=== PATIENT | female | born 1990 | race Hispanic/Latino ===

== ENCOUNTER 2016-05-03 18:31 | Emergency (ER) | payer SELFPAY ==
[2016-05-03] MEDS ORDERED: Ondansetron ODT 4 MG TAB ONE (18:55)
[2016-05-03 19:07] LABS: Bilirubin Negative (Negative); Blood, Urine Negative (Negative); Glucose, Urine (Dipstick) Negative (Negative); Ketone, Urine Negative (Negative); Nitrite Negative (Negative); Protein, Urine (Dipstick) Negative (Neg-Trace)
[2016-05-03 19:15] LABS: Bacteria/HPF Rare-Few HPF (None Seen); RBC/HPF 0-3 HPF (0-3); WBC/HPF 0-3 HPF (0-3)
--- NOTE | 2016-05-03 19:53 | ERRECORD ---
[facility] EMERGENCY RECORD HPI SORE THROAT (18:50 WMEI) CHIEF COMPLAINT: Patient presents for evaluation of sore throat, Patient presents for evaluation of FATIGUE MALAISE. HISTORIAN: History provided by patient. LOCATION: Symptoms are generalized. TIME COURSE: Gradual onset of symptoms, 2, days priror to arrival. ASSOCIATED WITH: No associated fever, No associated chills, No associated cough. RELIEVED BY: Patient's condition relieved by nothing. ROS (18:51 WMEI) CONSTITUTIONAL: Historian denies chills, reports fatigue, denies fever, reports malaise. EYES: Historian denies eye pain, denies eye discharge. ENT: Historian denies otalgia, denies rhinorrhea, denies sinus pain, reports sore throat. CARDIOVASCULAR: Historian denies chest pain, no radiation. RESPIRATORY: Historian denies cough, denies shortness of breath. GI: Historian reports abdominal pain, reports diarrhea, reports nausea, reports vomiting. GENITOURINARY FEMALE: Historian reports frequency. MUSCULOSKELETAL: Historian denies injury, denies joint stiffness, denies joint swelling. SKIN: Historian denies skin changes, denies skin lesions. ALLERGIC/IMMUNOLOGIC: Historian denies eczema, denies food allergies. PSYCHIATRIC: Historian denies alcohol abuse, denies anxiety. PAST MEDICAL HISTORY (18:37 KMOR) MEDICAL HISTORY: No past medical history, Flu vaccine not up to date, Tetanus immunization up to date. FEMALE SURGICAL HISTORY: Patient has no surgical history. PSYCHIATRIC HISTORY: No previous psychiatric history. SOCIAL HISTORY: Patient denies alcohol use, Patient denies drug use, Patient currently uses tobacco, smokes cigarettes, daily, Patient smokes 1/2 packs per day. KNOWN ALLERGIES No Known Drug Allergies CURRENT MEDICATIONS (18:52 KMOR) None VITAL SIGNS VITAL SIGNS: BP: 140/90, Resp: 18, Time: 05/03/2016 18:33. (18:33 KMOR) Pulse: 70, Temp: 98.3 (Oral), Pain: 5, O2 sat: 98 on Room Air, Time: 05/03/2016 18:36. (18:36 KMOR) PHYSICAL EXAM (18:53 WMEI) &a-1R&a+25V*p+0X*m8780F*c202B*c15G*c2P*p-0X&a-25V&a+1R Name: Sandra Paris : 1990 F26 MedRec: [id number] AcctN: [id number] Prepared: [facility] May 03, 2016 22:58 by Interface Page 1 of 3 pMD [facility] EMERGENCY RECORD CONSTITUTIONAL: Vital Signs Reviewed, Patient afebrile, Patient appears non toxic, Patient alert and oriented to person, place and time. HEAD: Head exam included findings of head atraumatic, normocephalic. EYES: Conjunctiva normal, Sclera normal. ENT: Ear exam normal, Nose exam normal, Pharynx exam normal, Tonsil exam normal. NECK: Neck exam included findings of normal range of motion, Trachea midline. RESPIRATORY CHEST: Breath sounds clear, Chest exam included findings of chest movement symmetrical. CARDIOVASCULAR: Cardiovascular exam included findings of heart rate regular rate and rhythm, Heart sounds normal. ABDOMEN FEMALE: Abdominal exam included findings of abdomen nontender, Liver normal, Spleen normal, no distension. UPPER EXTREMITY: Upper extremity exam included findings of inspection normal, Range of motion normal, Motor strength normal. LOWER EXTREMITY: Lower extremity exam included findings of inspection normal, Range of motion normal, Motor strength normal. NEURO: Meenu coma scale 15, Neuro exam findings include patient oriented to person, place and time, Speech normal, Gait normal. SKIN: Skin exam included findings of skin warm, dry, and normal in color. LYMPHATIC: Lymphatic exam normal. PSYCHIATRIC: Psychiatric exam included findings of patient oriented to person place and time, Normal affect, Judgment normal, Insight normal. MEDICATION ADMINISTRATION SUMMARY Drug Name: *ondansetron, Dose Ordered: 4 mg, Route: Sublingual, Status: Given, Time: 18:57 05/03/2016, *Additional information available in notes, Detailed record available in Medication Service section. PROBLEM LIST No recorded problems DIAGNOSIS (19:34 WMEI) FINAL: PRIMARY: Acute URI. PRESCRIPTION No recorded prescriptions DISPOSITION PATIENT: Disposition Type: Discharge, Disposition: *Discharge Home. (19:34 WMEI) Patient left the department. (19:40 PGRI) [place]: &a-1R&a+25V*p+0X*h7835A*c202B*c15G*c2P*p-0X&a-25V&a+1R Name: Sandra Paris DOB: 1990 F26 MedRec: [id number] AcctNum: [id number] Prepared: Jailene May 03, 2016 22:58 by Interface Page 2 of 3 pMD [facility] EMERGENCY RECORD KMOR=BHAVIK Kelly, Donna PGRI=BHAVIK Newberry, Shantal WMEI=DO Julissa, Dez &a-1R&a+25V*p+0X*p3986B*c202B*c15G*c2P*p-0X&a-25V&a+1R Name: Sandra Paris : 1990 F26 MedRec: [id number] AcctNum: [id number] Prepared: Jailene May 03, 2016 22:58 by Interface Page 3 of 3 pMD MTDD
--- NOTE | 2016-05-03 19:54 | PICIS ---
[facility] EMERGENCY RECORD TRIAGE (SatMay 03, 2016 18:35 KMOR) TRIAGE NOTES: "feels numb all over", fatigue, nausea, vomiting, headache for past several days. (SatMay 03, 2016 18:35 KMOR) PATIENT: NAME: Sandra Paris, AGE: 26, GENDER: female, : Sat1990, TIME OF GREET: SatMay 03, 2016 18:31, PREFERRED LANGUAGE: Macedonian, ETHNICITY: Not or , ECODE BILLING MAP: [facility] ER, KG WEIGHT: 81.65, , , PERSON ID: [id number], PCP: NONE. (SatMay 03, 2016 18:35 KMOR) Zip Code: [address], PHONE: , PAYMENT: [employer] Self Pay. (19:02) COMPLAINT: Not feeling well. (SatMay 03, 2016 18:35 KMOR) ADMISSION: URGENCY: 3 Urgent, ADMISSION SOURCE: Home, TRANSPORT: CAR, BED: ER -03. (SatMay 03, 2016 18:35 KMOR) ASSESSMENT: Assessment: A&OX4. RR EVEN AND UNLABORED. (18:37 KMOR) PAIN: Patient complains of pain described as, aching, Location HEADACHE. (18:37 KMOR) SIRS SCORING: Heart Rate 55-109 (0), Temp range 96.8-101.1 (0), respiratory rate 12-24 (0), Mental Status altered: no (0), Infection or Suspected Infection: No. (18:37 KMOR) TRIAGE SCREENING: Patient denies suicidal ideation, Patient denies presence of domestic violence. (18:37 KMOR) LMP: LMP: Not Applicable. (18:37 KMOR) PROVIDERS: TRIAGE NURSE: Donna Kelly RN. (Jailene May 03, 2016 18:35 KMOR) VITAL SIGNS: BP 140/90, Resp 18, Time 05/03/2016 18:33. (18:33 KMOR) Pulse 70, Temp 98.3, (Oral), Pain 5, O2 Sat 98, on Room Air, Time 05/03/2016 18:36. (18:36 KMOR) KNOWN ALLERGIES No Known Drug Allergies CURRENT MEDICATIONS (18:52 KMOR) None VITAL SIGNS VITAL SIGNS: BP: 140/90, Resp: 18, Time: 05/03/2016 18:33. (18:33 KMOR) Pulse: 70, Temp: 98.3 (Oral), Pain: 5, O2 sat: 98 on Room Air, Time: 05/03/2016 18:36. (18:36 KMOR) NURSING ASSESSMENT: ENT (18:52 KMOR) CONSTITUTIONAL: Patient arrives ambulatory, Gait steady, History obtained from patient, Patient appears comfortable, Patient cooperative, Patient alert, Oriented to person, place and time, Skin warm, Skin dry, Skin normal in color, Mucous membranes pink, Mucous membranes moist, Patient is well-groomed, Patient complains of Not feeling well, Patient reports not feeling well for past 2 days, &a-1R&a+25V*p+0X*u8173O*c202B*c15G*c2P*p-0X&a-25V&a+1R Name: Sandra Paris : 1990 F26 MedRec: [id number] AcctNum: [id number] Prepared: [facility] May 03, 2016 23:04 by Interface Page 1 of 7 pMD [facility] EMERGENCY RECORD reports numbness to body, headache, chills, nausea, fatigue and vomiting. PAIN: headache, on a scale 0-10 patient rates pain as 5. ENT: Ear assessment findings include ear normal to inspection, Nasal assessment findings include nose normal to inspection, Sinuses normal, Nasal mucosa normal, Mouth and throat assessment findings include mouth inspection normal, Uvula normal, Tonsils normal, Mucous membranes pink, and moist, Able to swallow, Speech normal, Associated with headache, diffuse. RESPIRATORY/CHEST: Breath sounds clear, Respiratory assessment findings include respiratory effort easy, Respirations regular, Conversing normally, Neck and chest exam findings include trachea midline, Chest expansion equal, Chest movement symmetrical, no signs of distress, no retractions noted, no associated cough noted. NOTES: Patient tolerated procedure well. NURSING PROCEDURE: DISCHARGE NOTE (19:39 PGRI) DISCHARGE: Patient discharged to home, ambulating without assistance, friend driving, accompanied by friend, Summary of Care printed/ provided, Patient requested and was provided an electronic copy of Discharge Instructions, Transition record given to patient, Discharge instructions given to patient, Patient treated and evaluated by physician. BELONGINGS: Belongings and valuables with patient upon arrival to the Emergency Department include:, Belongings and valuables with patient at time of discharge include:, Belongings remain with patient, Valuables remain with patient. SAFETY: Side rails up, Cart/Stretcher in lowest position, Family at bedside, Call light within reach, Hospital ID band on. NURSING PROCEDURE: ENT (18:54 KMOR) PATIENT IDENTIFIER: Patient actively involved in identification process, Patient's identity verified by patient stating name, Patient's identity verified by patient stating date. ENT: Nasal swab collected, labeled in the presence of the patient and sent to lab for testing of, influenza A, influenza B, collected by BHAVIK Thompsno, Throat swab collected, labeled in the presence of the patient and sent to the lab for testing of, rapid strep, collected by BHAVIK Thompson. NOTES: Patient tolerated procedure well. NURSING PROCEDURE: NURSE NOTES (18:54 KMOR) NURSES NOTES: Notes: Patient laughing with friend at bedside. ORDER DETAILS Order Name: Influenza A&B Ag Screen, Status: Active, Time: 18:50 05/03/2016, User: ALYSSA, &a-1R&a+25V*p+0X*y0224A*c202B*c15G*c2P*p-0X&a-25V&a+1R Name: Sandra Paris : 1990 F26 MedRec: [id number] AcctNum: [id number] Prepared: SatMay 03, 2016 23:04 by Interface Page 2 of 7 pMD [facility] EMERGENCY RECORD - Ordered for: DO Costa William, - Entered by: DO Costa William - [facility] May 03, 2016 18:50, - Quantity: 1, Order Name: Test, Urine (BHCG), Status: Active, Time: 18:59 05/03/2016, User: WOLF, - Ordered for: DO Costa William, - Entered by: BHAVIK Kelly, Donna - [facility] May 03, 2016 18:59, - Quantity: 1, Order Name: Strep Group A Screen, Status: Active, Time: 18:50 05/03/2016, User: WMEI, - Ordered for: DO Costa William, - Entered by: DO Costa William - [facility] May 03, 2016 18:50, - Quantity: 1, Order Name: Urinalysis w/ Rflx Microscopic, Status: Active, Time: 18:53 05/03/2016, User: [facility], - Ordered for: DO Costa William, - Entered by: DO Costa William - [facility] May 03, 2016 18:53, - Quantity: 1. MEDICATION ADMINISTRATION SUMMARY Drug Name: *ondansetron, Dose Ordered: 4 mg, Route: Sublingual, Status: Given, Time: 18:57 05/03/2016, *Additional information available in notes, Detailed record available in Medication Service section. MEDICATION SERVICE (18:57 [facility]) ondansetron: Order: ondansetron - Dose: 4 mg : Sublingual Notes: Generic ODT Ordered by: Dez Costa DO Entered by: Dez Costa DO [facility] May 03, 2016 18:53 , Acknowledged by: Donna Kelly RN [facility] May 03, 2016 18:54 Documented as given by: Donna Kelly RN [facility] May 03, 2016 18:57 Patient, Medication, Dose, Route and Time verified prior to administration. Amount given: 4mg, Site: Medication administered S.L., Correct patient, time, route, dose and medication confirmed prior to administration, Patient advised of actions and side-effects prior to administration, Allergies confirmed and medications reviewed prior to administration, Patient in position of comfort, Side rails up, Cart in lowest position, Family at bedside. HPI SORE THROAT (18:50 [facility]) CHIEF COMPLAINT: Patient presents for evaluation of sore throat, Patient presents for evaluation of FATIGUE MALAISE. HISTORIAN: History provided by patient. LOCATION: Symptoms are generalized. TIME COURSE: Gradual onset of symptoms, 2, days priror to arrival. ASSOCIATED WITH: No associated fever, No &a-1R&a+25V*p+0X*g7118T*c202B*c15G*c2P*p-0X&a-25V&a+1R Name: Sandra Paris : 1990 F26 MedRec: [id number] AcctNum: [id number] Prepared: SatMay 03, 2016 23:04 by Interface Page 3 of 7 pMD [facility] EMERGENCY RECORD associated chills, No associated cough. RELIEVED BY: Patient's condition relieved by nothing. ROS (18:51 WMEI) CONSTITUTIONAL: Historian denies chills, reports fatigue, denies fever, reports malaise. EYES: Historian denies eye pain, denies eye discharge. ENT: Historian denies otalgia, denies rhinorrhea, denies sinus pain, reports sore throat. CARDIOVASCULAR: Historian denies chest pain, no radiation. RESPIRATORY: Historian denies cough, denies shortness of breath. GI: Historian reports abdominal pain, reports diarrhea, reports nausea, reports vomiting. GENITOURINARY FEMALE: Historian reports frequency. MUSCULOSKELETAL: Historian denies injury, denies joint stiffness, denies joint swelling. SKIN: Historian denies skin changes, denies skin lesions. ALLERGIC/IMMUNOLOGIC: Historian denies eczema, denies food allergies. PSYCHIATRIC: Historian denies alcohol abuse, denies anxiety. PAST MEDICAL HISTORY (18:37 KMOR) MEDICAL HISTORY: No past medical history, Flu vaccine not up to date, Tetanus immunization up to date. FEMALE SURGICAL HISTORY: Patient has no surgical history. PSYCHIATRIC HISTORY: No previous psychiatric history. SOCIAL HISTORY: Patient denies alcohol use, Patient denies drug use, Patient currently uses tobacco, smokes cigarettes, daily, Patient smokes 1/2 packs per day. PHYSICAL EXAM (18:53 WMEI) CONSTITUTIONAL: Vital Signs Reviewed, Patient afebrile, Patient appears non toxic, Patient alert and oriented to person, place and time. HEAD: Head exam included findings of head atraumatic, normocephalic. EYES: Conjunctiva normal, Sclera normal. ENT: Ear exam normal, Nose exam normal, Pharynx exam normal, Tonsil exam normal. NECK: Neck exam included findings of normal range of motion, Trachea midline. RESPIRATORY CHEST: Breath sounds clear, Chest exam included findings of chest movement symmetrical. CARDIOVASCULAR: Cardiovascular exam included findings of heart rate regular rate and rhythm, Heart sounds normal. ABDOMEN FEMALE: Abdominal exam included findings of abdomen nontender, Liver normal, Spleen normal, no distension. UPPER EXTREMITY: Upper extremity exam included findings of inspection normal, Range of motion normal, Motor strength normal. LOWER EXTREMITY: Lower extremity exam included findings of &a-1R&a+25V*p+0X*f6731S*c202B*c15G*c2P*p-0X&a-25V&a+1R Name: Sandra Paris : 1990 F26 MedRec: [id number] AcctNum: [id number] Prepared: SatMay 03, 2016 23:04 by Interface Page 4 of 7 pMD [facility] EMERGENCY RECORD inspection normal, Range of motion normal, Motor strength normal. NEURO: Meenu coma scale 15, Neuro exam findings include patient oriented to person, place and time, Speech normal, Gait normal. SKIN: Skin exam included findings of skin warm, dry, and normal in color. LYMPHATIC: Lymphatic exam normal. PSYCHIATRIC: Psychiatric exam included findings of patient oriented to person place and time, Normal affect, Judgment normal, Insight normal. EVENTS TRANSFER: Triage to Emergency Emergency Room -03. (SatMay 03, 2016 18:35 KMOR) Removed from Emergency Emergency Room -03. (19:40 PGRI) PROBLEM LIST No recorded problems DIAGNOSIS (19:34 WMEI) FINAL: PRIMARY: Acute URI. DISPOSITION PATIENT: Disposition Type: Discharge, Disposition: *Discharge Home. (19:34 WMEI) Patient left the department. (19:40 PGRI) INSTRUCTION (19:35 WMEI) DISCHARGE: NAUSEA VOMITING 8YADULT. SPECIAL: Follow-up with your primary physician as needed. PRESCRIPTION No recorded prescriptions IMAGING (19:40 PGRI) *DISCHARGE INSTRUCTIONS RECEIPT: Image captured from scanner. *SUPPLY CHARGE SHEET: Image captured from scanner. ADMIN (22:51 WMEI) DIGITAL SIGNATURE: DO Costa William. RESULTS (19:13 CHOB) MICROBIOLOGY: Influenza A&B Ag Screen: [id number] Collection DT: SatMay 03, 2016 19:11, See comment below , @ ER ROOM#: ER-03 Source: Nasal swab Spec Desc: , Influenza A Antigen: NEGATIVE for the , presence of , INFLUENZA A Antigen , Influenza B Antigen: NEGATIVE for the , &a-1R&a+25V*p+0X*j2616I*c202B*c15G*c2P*p-0X&a-25V&a+1R Name: Sandra Paris : 1990 F26 MedRec: [id number] AcctNum: [id number] Prepared: SatMay 03, 2016 23:04 by Interface Page 5 of 7 pMD [facility] EMERGENCY RECORD presence of , INFLUENZA B Antigen , The rapid Flu A&B test can distinguish between influenza A , Influenza A&B Ag Screen See comment below , and B viruses, but it does not differentiate influenza , Influenza A&B Ag Screen See comment below , subtypes. , Influenza A&B Ag Screen See comment below , Influenza A&B Ag Screen See comment below , Influenza A&B Ag Screen See comment below , Influenza A&B Ag Screen See comment below , characteristics of this device with human specimens infected , Influenza A&B Ag Screen See comment below , with the 2008 H1N1 influenza virus have not been , Influenza A&B Ag Screen See comment below , established. For example: this test cannot distinguish , Influenza A&B Ag Screen See comment below , influenza infections caused by novel H1N1 influenza A , Influenza A&B Ag Screen See comment below , viruses versus seasonal influenza A viruses. , Influenza A&B Ag Screen See comment below , , Influenza A&B Ag Screen See comment below , A negative result does not exclude influenza virus , Influenza A&B Ag Screen See comment below , infection; therefore, if more conclusive testing is desired, , Influenza A&B Ag Screen See comment below , follow up confirmatory testing is warranted., Influenza A&B Ag Screen See comment below . LABORATORY: Test, Urine (BHCG) Collection DT: SatMay 03, 2016 19:03, Test - Urine (BHCG) NEGATIVE , Range (NEGATIVE), Method of sensitivity- Indeterminant: results should be repeated, after 48 hours. Positive: results may be detected as early as 4-5 days before a first missed menses. Elimination of BHCG-, Elimination following first trimester D&C: 29-44 Days , Elimination following term : 8-24 Days , Specific [place] 1.025 , Range (1.002-1.036), A dilute urine specimen may, not contain counter sales representative levels of hCG. If is still, suspected, a first morning urine specimen OR a random blood specimen should, be obtained from the patient 48-72 hours later and re-tested. , . MICROBIOLOGY: Strep Group A Screen: [id number] Collection DT: &a-1R&a+25V*p+0X*d4519C*c202B*c15G*c2P*p-0X&a-25V&a+1R Name: Sandra Paris : 1990 F26 MedRec: [id number] AcctNum: [id number] Prepared: SatMay 03, 2016 23:04 by Interface Page 6 of 7 pMD [facility] EMERGENCY RECORD SatMay 03, 2016 19:01, See comment below , @ ER ROOM#: ER-03 Source: Throat Spec Desc: PENDING, Strep A Negative CDC recommends , confirmation by , culture on all , negative , Strep negative line 1 Group A , Streptococcus rapid , screens. Please , order , Strep negative line 2 a throat culture if , clinically , indicated. , Rapid Strep Screen:Throat Negative . [place]: GABINO=BHAVIK Jeronimo, Padmini BLOOM=BHAVIK Kelly, Donna VÁZQUEZ=BHAVIK Newberry, Shantal WMEI=DO Costa William &a-1R&a+25V*p+0X*x3558V*c202B*c15G*c2P*p-0X&a-25V&a+1R Name: Sandra Paris : 1990 F26 MedRec: [id number] AcctNum: [id number] Prepared: SatMay 03, 2016 23:04 by Interface Page 7 of 7 pMD MTDD
== END 2016-05-03 19:39 | disposition home or self-care (01) ==
LOC: BURERS 18:31
DX: J06.9 Acute upper respiratory infection, unspecified (principal); F17.210 Nicotine dependence, cigarettes, uncomplicated
CPT/HCPCS: 81003; 81015; 81025; 87430; 99283; Q0162

== ENCOUNTER 2017-11-10 14:33 | Emergency (ER) | payer OTHER, SELFPAY ==
[2017-11-10] MEDS ORDERED: Ketorolac Tromethamine 60 MG/2 ML VIAL ONE (14:46)
== END 2017-11-10 15:05 | disposition home or self-care (01) ==
LOC: BURERS 14:33
DX: H60.92 Unspecified otitis externa, left ear (principal); F32.9 Major depressive disorder, single episode, unspecified; F17.210 Nicotine dependence, cigarettes, uncomplicated
CPT/HCPCS: 96372; J1885

== ENCOUNTER 2019-05-19 19:10 | Emergency (ER) | payer OTHER ==
[2019-05-19] MEDS ORDERED: Ondansetron ODT 4 MG TAB ONE (19:42)
[2019-05-19] MEDS ORDERED: predniSONE 20 MG TAB ONE (19:55)
[2019-05-19] MEDS ORDERED: Bicillin LA 1.2 MILLION UNITS/2 ML SYRINGE ONE (19:55)
== END 2019-05-19 20:00 | disposition home or self-care (01) ==
LOC: BURERS 19:10
DX: J02.9 Acute pharyngitis, unspecified (principal); R19.7 Diarrhea, unspecified; R11.2 Nausea with vomiting, unspecified; F32.9 Major depressive disorder, single episode, unspecified; F17.210 Nicotine dependence, cigarettes, uncomplicated
CPT/HCPCS: 87804; 96372; 99284; J0561; J7512; Q0162